=== PATIENT | female | born 1985 | race Caucasian/White ===

== ENCOUNTER 2017-04-11 00:01 | Inpatient (IN) | payer OTHER ==
[~2017-04-11 00:01] MED LIST: hydrOXYzine PAMOATE 25 MG CAPSULE ONE
[2017-04-11] MEDS ORDERED: ONDANSETRON HCL/PF 2 MG/ML VIAL IV PRN ×2 (00:30→08:44)
[2017-04-11] MEDS ORDERED: LIDOCAINE HCL 50 ML VIAL PERI PRN (00:30)
[2017-04-11] MEDS ORDERED: OXYTOCIN/DEXTROSE 5%-WATER 30 UNITS/500 ML BAG IV ONE ×2 (00:30→14:43)
[2017-04-11] MEDS ORDERED: INSULIN REGULAR HUMAN REC 100 UNITS in NORMAL SALINE 100 ML IV PRN (00:30)
[2017-04-11] MEDS ORDERED: RINGERS SOLUTION,LACTATED 1,000 ML IV ONE (00:30)
[2017-04-11] MEDS: DEXTROSE 5%-LACTATED RINGERS 1,000 ML IV PRN ×2 (00:56→09:47)
[2017-04-11] MEDS ORDERED: NALOXONE HCL 1 MG/1 ML SYRG IV PRN (08:44)
[2017-04-11] MEDS ORDERED: BUPIVACAINE HCL/0.9 % NACL/PF 250 ML EP PRN (08:44)
[2017-04-11] MEDS ORDERED: fentaNYL CITRATE/PF 50 MCG/ML AMPUL IT SCH (08:45)
--- NOTE | 2017-04-11 10:03 | OR ---
Anesthesia Procedure Note - Anesthesia Procedure Note Narrative: Vital Signs - Last Taken Temp 36.4 C L 04/11/17 08:59 Pulse 88 04/11/17 08:59 Resp 20 04/11/17 08:59 BP 113/70 04/11/17 08:59 Pulse Ox 97 04/11/17 08:59 04/11/17 10:03 ANESTHESIA PROCEDURE NOTE Date of Procedure: 04/11/2017 Time of procedure: 0940. Performed by: Ruddy Faye CRNA Emergency Medicine Nurse Practitioner: None. Preprocedure diagnosis: Active labor. Post procedure diagnosis: Same. Procedure: Insertion of labor epidural. Indications: The patient is a 32 -year-old multigravida female in active labor requesting labor epidural for pain management. Findings: See below. Details of the procedure: The patient was placed in a sitting position. Back was prepped with DuraPrep. Patient was then draped in a sterile fashion. Lidocaine 1% was infiltrated to the skin and subcutaneous tissues at the level of the L3 4 interspace. The epidural space was identified using a 18-gauge Tuohy needle with [id number] technique. 20 mcg fentanyl was given intrathecally using a 27 ga. spinal needle. Epidural catheter was inserted without difficulty. Negative test dose was elicited using 5 mL of 1.5% preservative-free lidocaine plus epinephrine 1 200,000. The epidural catheter was then taped and secured in place. EBL: Minimal. Fluids: N/A. Specimen: N/A. Post procedure condition: The patient tolerated the procedure well. No complications were noted. Thank you for this consultation. Peña CRNA
--- NOTE | 2017-04-11 12:28 | PN ---
Progess Note - Interim Narrative: 04/11/17 12:26 Patient comfortable with epidural Vital signs stable. Pitocin at 24 mu/min. FHT: 140 baseline, reassuring Contractions q 2-3 min Cervix: 5/60/-3, AROM 0835-clear Impression: Intrauterine at 39 weeks, Induction of labor for insulin- dependent gestational diabetes Plan: Continue present plan
--- NOTE | 2017-04-11 14:41 | OR ---
Operative Report - Dictated Report Narrative: Spontaneous vaginal delivery of viable male at 1401 on 04/11/2017 with Apgars 8 and 9, weighing 3469 g. Tight nuchal and right foot cord. Cord clamping delayed approximately 1 minute Placenta delivered complete, intact, with three vessel cord Estimated blood loss: less than 50 ml Lacerations: None
[2017-04-11] MEDS ORDERED: HYDROCORTISONE 30 APPL TUBE TP PRN (14:43)
[2017-04-11] MEDS ORDERED: BISACODYL 10 MG SUPP.RECT RC PRN (14:43)
[2017-04-11] MEDS ORDERED: BENZOCAINE/MENTHOL 81 SPRAY CAN TP PRN (14:43)
[2017-04-11] MEDS ORDERED: GLYCERIN/WITCH HAZEL LEAF 40 APPL BOX TP PRN (14:43)
[2017-04-11] MEDS ORDERED: oxyCODONE HCL/ACETAMINOPHEN 1 TAB TABLET PO PRN ×2 (14:43)
[2017-04-11] MEDS ORDERED: SENNOSIDES 8.6 MG TABLET PO PRN (14:43)
[2017-04-11] MEDS: IBUPROFEN 800 MG TABLET PO PRN (17:53)
[2017-04-11] MEDS: DOCUSATE SODIUM 100 MG CAPSULE PO SCH (20:50)
[2017-04-12] MEDS: IBUPROFEN 800 MG TABLET PO PRN ×4 (00:18→20:00)
[2017-04-12] MEDS: IRON 18 MG PO SCH (09:59)
[2017-04-12] MEDS: PRENATAL VIT#96/FERROUS FUM/FA 1 TAB TABLET PO SCH (09:59)
[2017-04-12] MEDS: DOCUSATE SODIUM 100 MG CAPSULE PO SCH ×2 (09:59→20:00)
--- NOTE | 2017-04-12 15:57 | PN ---
Subjective - Date and Time Seen Date: 04/12/17 Time: 15:54 Objective - Vitals Vitals: Last Vital Signs Temp 36.1 C L 04/12/17 11:46 Pulse 82 04/12/17 11:46 Resp 18 04/12/17 11:46 BP 117/71 04/12/17 11:46 Pulse Ox 96 04/12/17 11:46 Patient had a hypoglycemic episode a couple hours after eating her breakfast, but has been doing well since that time. Fasting blood sugar within normal limits 1 hour postprandial blood sugar elevated Lochia wnl Abdomen - soft, nontender Uterus - firm, at umbilicus - 1 No calf tenderness Impression: day #1 - s/p spontaneous vaginal delivery. Gestational diabetes-slowly improving. Plan: Continue routine care. Continue diabetic diet and repeat fasting and 1 hour prandial blood sugars in the morning. Cauti Physician Documentation - Urinary Catheter Management Urethral (Ly) Date of Insertion: 04/11/17 Time of Insertion: 10:00
[2017-04-13] MEDS: IBUPROFEN 800 MG TABLET PO PRN ×2 (02:28→08:37)
[2017-04-13] MEDS: PRENATAL VIT#96/FERROUS FUM/FA 1 TAB TABLET PO SCH (08:37)
[2017-04-13] MEDS: DOCUSATE SODIUM 100 MG CAPSULE PO SCH (08:37)
[2017-04-13] MEDS: IRON 18 MG PO SCH (09:30)
[2017-04-13 12:09] VITALS: BP 113/73
--- NOTE | 2017-04-13 12:56 | PN ---
Subjective - Date and Time Seen Date: 04/13/17 Time: 12:53 Objective - Vitals Vitals: Last Vital Signs Temp 36.2 C L 04/13/17 12:06 Pulse 84 04/13/17 12:06 Resp 18 04/13/17 12:06 BP 113/73 04/13/17 12:06 Pulse Ox 99 04/13/17 12:06 Patient denies complaints. FBS 63, 1hPP 153 Lochia wnl Abdomen - soft, nontender Uterus - firm, at umbilicus - 2 No calf tenderness Impression: day #2 - s/p spontaneous vaginal delivery. Gestational diabetes-persistent. Plan: Routine discharge instructions. Continue diabetic diet. Recheck a fasting and one-hour postprandial the day of visit. Cauti Physician Documentation - Urinary Catheter Management Urethral (Ly) Date of Insertion: 04/11/17 Time of Insertion: 10:00
== END 2017-04-13 12:45 | disposition home or self-care (01) | DRG 775 ==
LOC: OB 00:01
PROVIDERS: ADMIT Obstetrics & Gynecology; ATTEND Obstetrics & Gynecology
PROC: 10E0XZZ Delivery of Products of Conception, External Approach (ICD-10-PCS; principal; 2017-04-11)
PROC: 10907ZC Drainage of Amniotic Fluid, Therapeutic from Products of Conception, Via Natural or Artificial Opening (ICD-10-PCS; 2017-04-11)
PROC: 3E033VJ Introduction of Other Hormone into Peripheral Vein, Percutaneous Approach (ICD-10-PCS; 2017-04-11)
PROC: 4A1HXCZ Monitoring of Products of Conception, Cardiac Rate, External Approach (ICD-10-PCS; 2017-04-11)
PROC: 3E0S3CZ (ICD-10-PCS; 2017-04-11)
DX: O24.424 Gestational diabetes mellitus in childbirth, insulin controlled (principal); O69.1XX0 Labor and delivery complicated by cord around neck, with compression, not applicable or unspecified; Z3A.39 39 weeks gestation of pregnancy; Z37.0 Single live birth